=== PATIENT | male | born 1945 | race Caucasian/White ===

== ENCOUNTER → 2020-03-26 | Outpatient (CLI) | payer MEDICARE | END | disposition home or self-care (01) | LOC: LABPAT 09:22 | PROVIDERS: ATTEND Surgery | DX: Z01.818 Encounter for other preprocedural examination (principal); U07.1 COVID-19 | CPT/HCPCS: 93005; U0003; C9803; 36415; 86850; 86900; 86901 ==

== ENCOUNTER → 2020-03-30 | Day surgery (SDC) | payer MEDICARE ==
[2020-03-28 11:49] VITALS: BMI 27.9
[~2020-03-30] MED LIST: DEXAMETHASONE SOD PHOSPHATE 4 MG/ML 1 ML VIAL IV ONE; GLYCOPYRROLATE 0.2 MG/ML 2 ML VIAL ONE; HEPARIN SODIUM,PORCINE 5,000 UNIT/ML 1 ML VIAL ONE; HYDROmorphone 0.5 MG/0.5 ML SYRINGE IVP PRN; LACTATED RINGERS 1,000 ML IV ONE; LACTATED RINGERS 1,000 ML IV SCH; LIDOCAINE 1% (10MG/ML) FOR IV START INTRADERMA PRN; LIDOCAINE 1% INJ 10MG/ML (20 ML MDV) ONE; LIDOCAINE 1%-EPI 1:100,000 20 ML VIAL SQ ONE; MIDAZOLAM 2 MG/2 ML VIAL ONE; NEOSTIGMINE 1 MG/ML 10 ML VIAL ONE; ONDANSETRON 4 MG/2 ML VIAL IVP ONE; PROPOFOL 10 MG/ML 20 ML VIAL IV ONE; ROCURONIUM 10 MG/ML (10 ML VIAL) IV ONE; SUCCINYLCHOLINE CHLORIDE 100 MG/5 ML SYR IV ONE; fentaNYL (PF) 50 MCG/ML 2 ML AMP ONE
[2020-03-30 12:38] LABS: Glucose,Whole Blood 96 mg/dL (75-99)
[2020-03-30 12:44] LABS: Basophils # (A) 0.1 k/uL (0-0.2); Basophils % (A) 1 %; Eosinophils # (A) 0.2 k/uL (0-0.7); Eosinophils % (A) 3 %; HGB 14.4 gm/dL (13.0-17.5); Lymphocytes # (A) 1.7 k/uL (1.0-4.8); Lymphocytes % (A) 22 %; MCH 31.3 pg (25.0-35.0); MCHC 34.2 g/dL (31.0-37.0); MCV 91.3 fL (80.0-100.0); Mean Platelet Volume 6.5; Monocytes # (A) 0.4 k/uL (0-1.0); Monocytes % (A) 6 %; Neutrophils # (A) 5.3 k/uL (1.3-7.7); Neutrophils % (A) 68 %; Platelet Count 264 k/uL (150-450); RBC 4.61 m/uL (4.30-5.90); RDW 12.7 % (11.5-15.5); WBC 7.7 k/uL (3.8-10.6)
--- NOTE | 2020-03-30 15:01 | P.OP ---
Date of Procedure: 03/30/20 Preoperative Diagnosis: Left inguinal hernia Postoperative Diagnosis: Left indirect inguinal hernia Procedure(s) Performed: Robotic left inguinal hernia repair with mesh Anesthesia: GARRY Surgeon: Isidro Jeff Pathology: none sent Condition: stable Disposition: same day Indications for Procedure: 75-year-old male presents with a large left inguinal hernia. This is reducible on exam, however does cause a large bulge. He also complains of some bowel changes. He denies any nausea vomiting. He plans for elective left inguinal hernia repair with robotic assistance. He was explained risks, benefits and alternatives to the procedure. He did provide consent prior to attending the operating suite. Operative Findings: Large, sliding left inguinal hernia with sigmoid colon involvement Description of Procedure: The patient was brought back to the operating suite and placed in supine position. After general endotracheal anesthesia was induced, the patient's arms were tucked to the sides bilaterally and all pressure points were padded. SCDs were also placed in his bilateral lower extremities and were working throughout the entire case. Preoperative antibiotics were given prior to the incision. A timeout was performed with all team members in agreement with correct patient, procedure and location. A super umbilical incision was made approximately 27 years superior to the pubic symphysis. The abdomen was then entered with a 8 mm port. At this point pneumoperitoneum was achieved. 2 additional incisions were made approximately 11 7 m lateral to the super umbilical incision and a millimeter trochars were placed. The patient was then placed in Trendelenburg position on the hernia site was clearly visualized on the left side. This was noted as a large sliding inguinal hernia with sigmoid colon involved. This was reduced by direct pressure. The robot was then docked appropriately. Incision was then made just lateral to the medial umbilical ligament on the left side with the monopolar scissors and the peritoneal flap was created and was taken down towards Mika's ligament. The flap was then extended laterally. Attention was then turned to the indirect inguinal hernia. The sac was then freed from the cord all while preserving the cord structures. At this point the indirect hernia was reduced. Once the entire space was appropriately dissected, we brought the laparoscopic parietex progrip mesh and unrolled it over the hernia site. Once appropriately in place, the peritoneal flap was closed using a running 20V lock suture. Once this was completed, we removed all the robotic instruments and undocked the robot. The super umbilical fascial incision site was closed with a 0 Vicryl suture using the Kyle Gatica device. This was done under laparoscopic guidance. All skin incisions were then closed with 4-0 Vicryl suture. The patient was awakened in the operating suite and taken to post anesthesia care unit in stable condition.
[2020-03-30 15:13] VITALS: TEMP 97.5
[2020-03-30 15:54] VITALS: RESP 17
[2020-03-30 15:54] LABS: Glucose,Whole Blood 123 mg/dL (75-99)
[2020-03-30 16:05] VITALS: BP 150/81; PULSE 74
== END | disposition home or self-care (01) ==
LOC: OR 11:21
PROVIDERS: ATTEND Surgery
DX: K40.90 Unilateral inguinal hernia, without obstruction or gangrene, not specified as recurrent (principal); E11.9 Type 2 diabetes mellitus without complications; I10 Essential (primary) hypertension; E78.00 Pure hypercholesterolemia, unspecified; E78.5 Hyperlipidemia, unspecified; Z90.89 Acquired absence of other organs; Z90.49 Acquired absence of other specified parts of digestive tract; Z79.84 Long term (current) use of oral hypoglycemic drugs; Z79.899 Other long term (current) drug therapy; Z79.82 Long term (current) use of aspirin; Z86.73 Personal history of transient ischemic attack (TIA), and cerebral infarction without residual deficits; Z81.8 Family history of other mental and behavioral disorders
CPT/HCPCS: 85025; 87635; 49650; C1781; J2250; J1644; J1100; J2710; J0690; J2405; J2001; J3010; J0330; J2704; 36415; 86850; 86900; 86901